=== PATIENT | female | born 1960 ===

== ENCOUNTER 2021-01-25 08:15 | Day surgery (SDC) | payer OTHER ==
[2021-01-25] MEDS ORDERED: MORGIDOX100 MG PO (13:33)
[2021-01-25] MEDS ORDERED: NAPR500T14 PO (13:33)
== END 2021-01-25 20:00 | disposition home or self-care (01) ==
LOC: CIR.AMB 08:15
PROVIDERS: ATTEND Obstetrics & Gynecology
DX: D25.0 Submucous leiomyoma of uterus (principal); N84.0 Polyp of corpus uteri; N84.1 Polyp of cervix uteri; Z20.822 Contact with and (suspected) exposure to COVID-19